=== PATIENT | male | born 1985 | race Caucasian/White ===

== ENCOUNTER 2018-01-29 11:24 | Emergency (ER) | payer SELFPAY ==
[~2018-01-29] VITALS: Ht 182.9 cm; Wt 84.8 kg
[~2018-01-29 11:24] MED LIST: KEFLEX500 MG PO; TYLENOL WITH C1 EACH PO
--- NOTE | 2018-01-29 13:46 | Diagnostic Imaging Report ---
PROCEDURE:CHEST 2 VIEWS TECHNIQUE:PA and lateral chest INDICATION:Ingestion of unknown stimulant drug. COMPARISON:None. FINDINGS: The lungs are clear and symmetrically inflated. No pleural effusions. Normal heart size and mediastinal contour. Intact skeleton. CONCLUSION: No acute abnormality. Dictated by: Saman Benedict M.D. on 01/29/2018 at 13:46 Electronically approved by: Saman Benedict M.D. on 01/29/2018 at 13:46
[2018-01-29 14:22] LABS: BASOPHILS % 0.2 % (0.0-1.0); EOSINOPHILS # (AUTO) 0.3 (0.0-0.4); EOSINOPHILS % 1.8 % (0.0-6.0); HEMATOCRIT 41.7 % (38.2-49.6); HEMOGLOBIN 14.7 g/dL (14.0-18.0); LYMPHOCYTES # (AUTO) 2.4 (1.0-3.2); LYMPHOCYTES % 13.4 % (18.0-39.1); MEAN CORPUSCULAR HEMOGLOBIN 31.1 pg (28-32); MEAN CORPUSCULAR HGB CONC 35.3 g/dL (31-35); MEAN CORPUSCULAR VOLUME 88.2 fL (81-99); MONOCYTES % 11.2 % (4.4-11.3); NEUTROPHILS # (AUTO) 13.1 (2.1-6.9); PLATELET COUNT 207 x10e3/uL (140-360); RED BLOOD COUNT 4.73 x10e6/uL (4.3-5.7); RED CELL DISTRIBUTION WIDTH 14.1 % (11.7-14.4)
[2018-01-29 14:37] LABS: ALANINE AMINOTRANSFERASE 16 IU/L (0-55); ALBUMIN 4.3 g/dL (3.5-5.0); ALBUMIN/GLOBULIN RATIO 1.2 (0.8-2.0); ALKALINE PHOSPHATASE 78 IU/L (40-150); ANION GAP 16.6 mmol/L (8-16); BLOOD UREA NITROGEN 10 mg/dL (7-26); BUN/CREATININE RATIO 13 (6-25); CARBON DIOXIDE 26 mmol/L (22-29); CHLORIDE 99 mmol/L (98-107); CREATINE KINASE 193 IU/L (30-200); EST GLOMERULAR FILTRATION RATE > 60 ML/MIN (60-); GLUCOSE 94 mg/dL (74-118); POTASSIUM 3.6 mmol/L (3.5-5.1); SODIUM 138 mmol/L (136-145)
[2018-01-29 14:38] LABS: CALCIUM 10.8 mg/dL (8.4-10.2)
[2018-01-29 15:21] LABS: ABG PCO2 40 mmHg (41-51); ABG PH 7.44 (7.31-7.41); ABG PO2 86 mmHg (80-105)
[2018-01-29 15:22] LABS: ABG HCO3 27 mmol/L (23-28)
[2018-01-29 19:38] VITALS: BP 135/83
== END 2018-01-29 19:41 | disposition left against medical advice (07) ==
LOC: ER 11:24
DX: F14.19 Cocaine abuse with unspecified cocaine-induced disorder (principal); F19.90 Other psychoactive substance use, unspecified, uncomplicated
CPT/HCPCS: 36415; 36600; 71046; 80053; 82550; 82553; 82805; 84484; 85025; 93005; 99283